=== PATIENT | male | born 1995 | race Caucasian/White ===

== ENCOUNTER 2020-01-09 16:53 | Emergency (ER) | payer BC ==
[2020-01-10 12:19] LABS: SARS-CoV-2 MS2 Negative; SARS-CoV-2 N Gene Positive; SARS-CoV-2 S Gene Positive; SARS-CoV-2 by NAA DETECTED (NotDetected); SARS-CoV-2 orf1ab Positive
== END 2020-01-09 17:20 | disposition home or self-care (01) ==
LOC: ERS 16:53
DX: U07.1 COVID-19 (principal)
CPT/HCPCS: 87635; 99283; U0003